=== PATIENT | male | born 1950 | race Caucasian/White ===

== ENCOUNTER 2019-09-02 11:48 | Emergency (ER) | payer MEDICARE, BC ==
[~2019-09-02] VITALS: Ht 190.5 cm; Wt 107.0 kg
[2019-09-02 12:27] LABS: BASOPHILS % (AUTO) 0.7 % (0-1); EOSINOPHILS # (AUTO) 0.2 X10'3 (0-0.9); HEMATOCRIT 45.5 % (42.0-52.0); HEMOGLOBIN 15.5 g/dl (14.0-17.9); LYMPHOCYTES # (AUTO) 1.7 X10'3 (1.1-4.8); MEAN CORPUSCULAR HEMOGLOBIN 32.5 PG (27.0-31.0); MEAN CORPUSCULAR HGB CONC 34.1 g/dL (33.0-36.5); MEAN CORPUSCULAR VOLUME 95.2 FL (78-98); MEAN PLATELET VOLUME 7.6 FL (7.4-10.4); MONOCYTES # (AUTO) 0.8 X10'3 (0-0.9); MONOCYTES % (AUTO) 13.1 % (2-12); NEUTROPHILS # (AUTO) 3.2 X10'3 (1.8-7.7); NEUTROPHILS % (AUTO) 54.2 % (42-75); PLATELET COUNT 262 X10'3 (140-440); RED BLOOD COUNT 4.78 X10'6 (4.70-6.10); RED CELL DISTRIBUTION WIDTH 14.1 % (11.5-14.5); WHITE BLOOD COUNT 5.9 X10'3 (4.5-11.0)
[2019-09-02 12:39] LABS: PARTIAL THROMBOPLASTIN TIME 28 SECONDS (22-32)
[2019-09-02 12:47] LABS: ALANINE AMINOTRANSFERASE 30 U/L (12-78); ALBUMIN 3.9 G/DL (3.4-5.0); ALBUMIN/GLOBULIN RATIO 1.1 (1.1-1.5); ALKALINE PHOSPHATASE 78 IU/L (46-116); ANION GAP 9 (8-16); ASPARTATE AMINO TRANSFERASE 13 U/L (10-37); BILIRUBIN,TOTAL 0.4 MG/DL (0.1-1.0); BLOOD UREA NITROGEN 16 MG/DL (7-18); CALCIUM 8.3 MG/DL (8.5-10.1); CHLORIDE 108 MMOL/L (99-107); GLUCOSE 128 MG/DL (70-104); POTASSIUM 4.4 MMOL/L (3.5-5.1); SODIUM 144 MMOL/L (135-145); TOTAL CARBON DIOXIDE 26.8 MMOL/L (24-32); TOTAL PROTEIN 7.4 G/DL (6.4-8.2); eGFR 74 ML/MIN
[2019-09-02 16:23] VITALS: BP 162/94
== END 2019-09-02 16:25 | disposition home or self-care (01) ==
LOC: ER 11:48
DX: R07.89 Other chest pain (principal); I48.91 Unspecified atrial fibrillation
CPT/HCPCS: 36415; 71045; 80053; 84484; 85025; 85610; 85730; 93005; 99284

== ENCOUNTER 2020-11-22 09:42 | Day surgery (SDC) | payer MEDICARE, BC ==
[2020-11-22] VITALS (10 sets, daily range): BP systolic 104–149; BP diastolic 73–108
[~2020-11-22] VITALS: Ht 190.5 cm; Wt 111.1 kg
[2020-11-22] MEDS ORDERED: fentaNYL/PF 50MCG/1 ML 2ML syringe IV ONE (10:15)
[2020-11-22] MEDS ORDERED: MIDAZolam 1mg/ml 10ml vial IV ONE (10:15)
[2020-11-22] MEDS ORDERED: normal saline 1000ml 1,000 ML IV SCH (10:15)
[2020-11-22] MEDS ORDERED: SUCR1TAB PO (10:44)
[2020-11-22] MEDS ORDERED: PANT40TA54 PO (10:44)
[2020-11-22] MEDS ORDERED: PRAV40TA3 PO (10:44)
[2020-11-22] MEDS ORDERED: LOSA50TA64 PO (10:44)
[2020-11-22] MEDS ORDERED: CARV12.545 PO (10:44)
[2020-11-22 10:45] LABS: BASOPHILS # (AUTO) 0.1 X10'3 (0-0.2); EOSINOPHILS # (AUTO) 0.1 X10'3 (0-0.9); EOSINOPHILS % (AUTO) 2.5 % (0-6); HEMATOCRIT 42.2 % (42.0-52.0); HEMOGLOBIN 14.2 g/dl (14.0-17.9); LYMPHOCYTES # (AUTO) 1.5 X10'3 (1.1-4.8); LYMPHOCYTES % (AUTO) 27.5 % (21-51); MEAN CORPUSCULAR HEMOGLOBIN 32.2 PG (27.0-31.0); MEAN CORPUSCULAR HGB CONC 33.6 g/dL (33.0-36.5); MEAN CORPUSCULAR VOLUME 95.9 FL (78-98); MEAN PLATELET VOLUME 7.5 FL (7.4-10.4); MONOCYTES # (AUTO) 0.8 X10'3 (0-0.9); MONOCYTES % (AUTO) 14.7 % (2-12); NEUTROPHILS % (AUTO) 54.3 % (42-75); PLATELET COUNT 221 X10'3 (140-440); RED CELL DISTRIBUTION WIDTH 13.7 % (11.5-14.5); WHITE BLOOD COUNT 5.5 X10'3 (4.5-11.0)
[2020-11-22] MEDS ORDERED: APPLE CIDER VINEGAR (10:47)
[2020-11-22] MEDS ORDERED: ASCO500C12 PO (10:47)
[2020-11-22] MEDS ORDERED: APIX5TAB3 PO (10:47)
[2020-11-22] MEDS ORDERED: SOTA80TA73 PO (10:48)
[2020-11-22 10:57] LABS: ALBUMIN 3.6 G/DL (3.4-5.0); ANION GAP 8 (8-16); BLOOD UREA NITROGEN 14 MG/DL (7-18); BUN/CREATININE RATIO 16.5 (5.4-32.0); CALCIUM 8.7 MG/DL (8.5-10.1); CHLORIDE 108 MMOL/L (99-107); CREATININE 0.85 MG/DL (0.60-1.10); GLUCOSE 98 MG/DL (70-104); MAGNESIUM 2.1 MG/DL (1.5-2.4); POTASSIUM 4.3 MMOL/L (3.5-5.1); SODIUM 142 MMOL/L (135-145); TOTAL CARBON DIOXIDE 26.3 MMOL/L (24-32); eGFR 89 ML/MIN
== END 2020-11-22 13:40 | disposition home or self-care (01) ==
LOC: SSTAY O 09:42
PROVIDERS: ATTEND Internal Medicine Cardiovascular Disease
DX: I48.4 Atypical atrial flutter (principal); I10 Essential (primary) hypertension; E78.5 Hyperlipidemia, unspecified; G47.30 Sleep apnea, unspecified; Z79.899 Other long term (current) drug therapy
CPT/HCPCS: 36415; 80048; 83735; 85025; 85610; 92960; 93005; 94799

== ENCOUNTER 2021-03-19 07:56 | Day surgery (SDC) | payer MEDICARE, BC ==
[2021-03-19] VITALS (10 sets, daily range): BP systolic 113–154; BP diastolic 74–111
[~2021-03-19] VITALS: Ht 190.5 cm; Wt 109.8 kg
[~2021-03-19 07:56] MED LIST: APIX5TAB3 PO; APPLE CIDER VINEGAR; ASCO500C12 PO; CARV12.545 PO; LOSA50TA64 PO; PANT40TA54 PO; PRAV40TA3 PO; SOTA80TA73 PO; SUCR1TAB PO
[2021-03-19] MEDS ORDERED: PROP325C5 PO (08:51)
[2021-03-19 09:36] LABS: BASOPHILS # (AUTO) 0.1 X10'3 (0-0.2); BASOPHILS % (AUTO) 1.2 % (0-1); EOSINOPHILS # (AUTO) 0.3 X10'3 (0-0.9); EOSINOPHILS % (AUTO) 4.6 % (0-6); HEMATOCRIT 41.9 % (42.0-52.0); LYMPHOCYTES # (AUTO) 1.3 X10'3 (1.1-4.8); LYMPHOCYTES % (AUTO) 20.5 % (21-51); MEAN CORPUSCULAR HEMOGLOBIN 32.2 PG (27.0-31.0); MEAN CORPUSCULAR HGB CONC 33.3 g/dL (33.0-36.5); MEAN CORPUSCULAR VOLUME 96.7 FL (78-98); MEAN PLATELET VOLUME 7.6 FL (7.4-10.4); MONOCYTES # (AUTO) 0.9 X10'3 (0-0.9); MONOCYTES % (AUTO) 14.5 % (2-12); NEUTROPHILS # (AUTO) 3.6 X10'3 (1.8-7.7); NEUTROPHILS % (AUTO) 59.2 % (42-75); PLATELET COUNT 256 X10'3 (140-440); RED BLOOD COUNT 4.34 X10'6 (4.70-6.10); RED CELL DISTRIBUTION WIDTH 13.8 % (11.5-14.5); WHITE BLOOD COUNT 6.1 X10'3 (4.5-11.0)
[2021-03-19 09:55] LABS: ALBUMIN 3.6 G/DL (3.4-5.0); ANION GAP 8 (8-16); BLOOD UREA NITROGEN 17 MG/DL (7-18); BUN/CREATININE RATIO 16.5 (5.4-32.0); CALCIUM 8.1 MG/DL (8.5-10.1); CHLORIDE 110 MMOL/L (99-107); CREATININE 1.03 MG/DL (0.60-1.10); GLUCOSE 95 MG/DL (70-104); MAGNESIUM 2.1 MG/DL (1.5-2.4); SODIUM 142 MMOL/L (135-145); TOTAL CARBON DIOXIDE 23.6 MMOL/L (24-32); eGFR 71 ML/MIN
[2021-03-19] MEDS ORDERED: normal saline 1000ml 1,000 ML IV SCH (10:05)
[2021-03-19] MEDS ORDERED: fentaNYL/PF 50MCG/1 ML 2ML syringe IV ONE (10:05)
[2021-03-19] MEDS ORDERED: morphine 10mg/ml inj. IV ONE (10:05)
[2021-03-19] MEDS ORDERED: MIDAZolam 5mg/ml 2ml vial IV ONE (10:10)
== END 2021-03-19 12:55 | disposition home or self-care (01) ==
LOC: SSTAY O 07:56
PROVIDERS: ATTEND Internal Medicine Cardiovascular Disease
DX: I48.3 Typical atrial flutter (principal); I10 Essential (primary) hypertension; E78.5 Hyperlipidemia, unspecified; G47.30 Sleep apnea, unspecified; I48.0 Paroxysmal atrial fibrillation; Z79.01 Long term (current) use of anticoagulants; Z79.899 Other long term (current) drug therapy
CPT/HCPCS: 36415; 80048; 83735; 85025; 85610; 92960; 93005; 94760; 94799; J2250; J3010; J7030

== ENCOUNTER 2021-04-27 07:50 | Day surgery (SDC) | payer MEDICARE, BC ==
[2021-04-27] VITALS (23 sets, daily range): BP systolic 114–152; BP diastolic 79–105
[~2021-04-27] VITALS: Ht 190.5 cm; Wt 107.3 kg
[~2021-04-27 07:50] MED LIST changes: -CARV12.545 PO; +PROP325C5 PO; -SOTA80TA73 PO; -SUCR1TAB PO
[2021-04-27] MEDS ORDERED: fentaNYL/PF 50MCG/1 ML 2ML syringe IV ONE (08:20)
[2021-04-27] MEDS ORDERED: normal saline 1000ml 1,000 ML IV SCH (08:20)
[2021-04-27] MEDS ORDERED: MIDAZolam 1mg/ml 10ml vial IV ONE (08:20)
[2021-04-27] MEDS ORDERED: NITR0.4T51 SL (08:26)
== END 2021-04-27 13:40 | disposition home or self-care (01) ==
LOC: SSTAY O 07:50
PROVIDERS: ATTEND Internal Medicine Cardiovascular Disease
DX: I48.4 Atypical atrial flutter (principal); I48.0 Paroxysmal atrial fibrillation; I10 Essential (primary) hypertension; E78.5 Hyperlipidemia, unspecified; G47.30 Sleep apnea, unspecified; Z79.899 Other long term (current) drug therapy; Z79.01 Long term (current) use of anticoagulants
CPT/HCPCS: 92960; 93005; 94760; 94799

== ENCOUNTER 2021-08-20 06:07 | Day surgery (SDC) | payer MEDICARE, BC ==
[~2021-08-20] VITALS: Ht 190.5 cm; Wt 110.4 kg
[~2021-08-20 06:07] MED LIST changes: -APPLE CIDER VINEGAR; -ASCO500C12 PO; +NITR0.4T51 SL
[2021-08-20] MEDS ORDERED: normal saline 1000ml 1,000 ML IV SCH (06:35)
[2021-08-20] MEDS ORDERED: MIDAZolam 1mg/ml 10ml vial IV ONE (06:35)
[2021-08-20] MEDS ORDERED: fentaNYL/PF 50MCG/1 ML 2ML syringe IV ONE (06:35)
[2021-08-20] MEDS ORDERED: RYT225T PO (06:40)
--- NOTE | 2021-08-20 08:10 | NUR ---
Procedure cancelled per MD after review of bedside EKG.
== END 2021-08-20 08:05 | disposition home or self-care (01) ==
LOC: SSTAY O 06:07
PROVIDERS: ATTEND Internal Medicine Cardiovascular Disease
DX: I48.92 Unspecified atrial flutter (principal); Z53.8 Procedure and treatment not carried out for other reasons
CPT/HCPCS: 93005

== ENCOUNTER 2021-09-26 07:04 | Day surgery (SDC) | payer MEDICARE, BC ==
[2021-09-21 10:18] LABS: BASOPHILS # (AUTO) 0.1 X10'3 (0-0.2); EOSINOPHILS # (AUTO) 0.2 X10'3 (0-0.9); EOSINOPHILS % (AUTO) 2.6 % (0-6); LYMPHOCYTES # (AUTO) 1.5 X10'3 (1.1-4.8); LYMPHOCYTES % (AUTO) 23.9 % (21-51); MEAN CORPUSCULAR HEMOGLOBIN 32.5 PG (27.0-31.0); MEAN CORPUSCULAR HGB CONC 33.4 g/dL (33.0-36.5); MEAN CORPUSCULAR VOLUME 97.6 FL (78-98); MEAN PLATELET VOLUME 7.6 FL (7.4-10.4); MONOCYTES # (AUTO) 0.9 X10'3 (0-0.9); MONOCYTES % (AUTO) 13.8 % (2-12); NEUTROPHILS # (AUTO) 3.7 X10'3 (1.8-7.7); NEUTROPHILS % (AUTO) 58.7 % (42-75); PRE OP HEMATOCRIT 41.1 % (42.0-52.0); PRE OP HEMOGLOBIN 13.7 g/dL (14.0-17.9); PRE OP PLATELET COUNT 223 X10'3 (140-440); RED BLOOD COUNT 4.21 X10'6 (4.70-6.10); RED CELL DISTRIBUTION WIDTH 14.1 % (11.5-14.5)
[2021-09-21 10:35] LABS: CLARITY,URINE CLEAR (Clear); COLOR,URINE YELLOW (Yellow); GLUCOSE, URINE NEGATIVE (Neg); KETONES,URINE NEGATIVE (Neg); LEUKOCYTE ESTERASE ,URINE NEGATIVE (Neg); NITRITES, URINE NEGATIVE (Neg); OCCULT BLOOD,URINE TRACE-INTACT (Neg); PROTEIN,URINE NEGATIVE (Neg); UROBILINOGEN,URINE 0.2 E.U/dL (0.2-1.0)
[2021-09-21 10:36] LABS: UA COLLECTION TYPE CLN CATCH MIDSTREAM
[2021-09-21 10:41] LABS: BACTERIA,URINE NONE SEEN /HPF (Neg); MUCUS STRANDS NONE SEEN /LPF (Neg); RBC,URINE 0-2 /HPF (0-2); SQUAMOUS EPITHELIAL CELL,UR FEW /LPF (FEW); WBC,URINE NONE SEEN /HPF (0-4)
[2021-09-21 10:42] LABS: FINE GRANULAR CAST 0-3 /LPF (NEGATIVE)
[2021-09-21 10:42] LABS: ALBUMIN 3.7 G/DL (3.4-5.0); ALBUMIN/GLOBULIN RATIO 1.2 (1.1-1.5); ALKALINE PHOSPHATASE 68 IU/L (46-116); BLOOD UREA NITROGEN 17 MG/DL (7-18); BUN/CREATININE RATIO 15.9 (5.4-32.0); CALCIUM 8.4 MG/DL (8.5-10.1); CHLORIDE 106 MMOL/L (99-107); CREATININE 1.07 MG/DL (0.60-1.10); PRE OP ALT 33 U/L (30-65); PRE OP ANION GAP 9 (8-16); PRE OP AST 13 U/L (10-37); PRE OP BILIRUB, TOTAL 0.4 MG/DL (0.0-1.0); PRE OP GLUCOSE 108 MG/DL (70-104); PRE OP POTASSIUM 4.2 MMOL/L (3.4-5.1); PRE OP SODIUM 144 MMOL/L (135-145); TOTAL CARBON DIOXIDE 29.1 MMOL/L (24-32); TOTAL PROTEIN 6.8 G/DL (6.4-8.2); eGFR 68 ML/MIN
[2021-09-26] VITALS (14 sets, daily range): BP systolic 137–167; BP diastolic 86–119
[~2021-09-26] VITALS: Ht 190.5 cm; Wt 108.5 kg
[~2021-09-26 07:04] MED LIST changes: +BUPIVAcaine 0.5% inj/PF 30 ML ONE; -PROP325C5 PO; +RYT225T PO; +cefazolin/dext.iso 2gm/50ml IV ONE; +famotidine 20mg tablet PO ONE; +ringers solution, lacted 1,000 ML IV SCH
[2021-09-26] MEDS ORDERED: ringers solution, lacted 1,000 ML IV SCH (09:50)
[2021-09-26] MEDS ORDERED: meperidine/PF 25mg/ml syringe IV PRN ×3 (09:50)
[2021-09-26] MEDS ORDERED: morphine 2 MG/ML inj. syringe IV PRN (09:50)
[2021-09-26] MEDS ORDERED: morphine 4 MG/ML inj SYRINge IV PRN (09:50)
[2021-09-26] MEDS ORDERED: proCHLORperazine 10 MG/2 ml inj IV PRN (09:50)
[2021-09-26] MEDS ORDERED: ondansetron/PF 4mg/2ml inj IV PRN (09:50)
[2021-09-26] MEDS ORDERED: midazolam 1 mg/ML 2ml injection ONE (12:18)
[2021-09-26] MEDS ORDERED: fentaNYL /PF 50mcg/ml 5ml ampule ONE (12:19)
[2021-09-26] MEDS ORDERED: propofol inj 20 ML IV ONE (12:27)
[2021-09-26] MEDS ORDERED: ondansetron/PF 4mg/2ml inj ONE (12:27)
[2021-09-26] MEDS ORDERED: rocuronium 10mg/ml inj IV ONE (12:27)
[2021-09-26] MEDS ORDERED: LIDOcaine 2% (20mg/ml) 5ml vial ONE (12:27)
[2021-09-26] MEDS ORDERED: acetaminophen 1,000mg/100ml IV 100 ML IV ONE (13:39)
--- NOTE | 2021-09-26 14:02 | NUR ---
Received from OR via gurney, accompanied by Anesthesiologist Dr. Us and report given by Anesthesiolgist. pt with oral airway in place, vital signs stable, blood pressure slightly elevated, bp cuff repositioned, and pressure decreased, orders received for vasotec if pt continues to be hypertensive. coude valle catheter remains in place, bloody urine in bag, per OR nurse pt will go home with valle catheter due to difficult placement.
--- NOTE | 2021-09-26 14:20 | NUR ---
pt is awake and responsive, he was able to remove the oral airway himself. pharmacy called for vasotec, patient denies pain at this time but complains of pressure in abdominal cavity
[2021-09-26] MEDS ORDERED: enalaprilat dihydrate 2.5mg/2ml vial IV PRN (14:30)
--- NOTE | 2021-09-26 16:02 | NUR ---
PATIENT MEETS ALL DISCHARGE CRITERIA, IV CATHETER REMOVED INTACT, DRESSING AND COBAN APPLIED, PTS NAVARRO CATHETER REMIANS IN PLACE, URINE SLOWLY CLEARING UP TO LIGHT PINK. PT GIVEN INSTRUCTIONS ON HOW TO EMPTY AND CARE FOR NAVARRO CATHETER, PT DID NOT WANT LEG BAG. PT CONTINUES TO HAVE MILD PAIN IN THE PENIS AREA, STATES HE FEELS LIKE HE HAS TO URINATE CONSTANTLY. PTS STATES HE IS DUE TO TAKE HIS CARDIAC MEDICINE AT 430 AND WANTED TO GET HOME TO TAKE IT ON TIME. Addendum: 09/26/21 at 1638 by Cony Dave RN Amended: Links added.
--- NOTE | 2021-09-26 16:03 | NUR ---
PT TRANSPORTED TO THE FRONT ENTRY WAY VIA WHEEL CHAIR WHERE HIS WAS WAITING FOR HIM Addendum: 09/26/21 at 1638 by Cony Dave RN Amended: Links added.
== END 2021-09-26 16:02 | disposition home or self-care (01) ==
LOC: PAS 07:04
PROVIDERS: ATTEND Surgery
DX: K40.90 Unilateral inguinal hernia, without obstruction or gangrene, not specified as recurrent (principal); N40.0 Benign prostatic hyperplasia without lower urinary tract symptoms; I48.91 Unspecified atrial fibrillation; I10 Essential (primary) hypertension; I48.0 Paroxysmal atrial fibrillation; K21.9 Gastro-esophageal reflux disease without esophagitis; Z79.01 Long term (current) use of anticoagulants; Z79.899 Other long term (current) drug therapy; Z20.822 Contact with and (suspected) exposure to COVID-19; Z87.891 Personal history of nicotine dependence; Z72.89 Other problems related to lifestyle; Z98.890 Other specified postprocedural states; Z88.8 Allergy status to other drugs, medicaments and biological substances; Z82.49 Family history of ischemic heart disease and other diseases of the circulatory system
CPT/HCPCS: 36415; 49650; 80053; 81001; 82948; 85025; C1781; J0131; J2250; J2270; J2405; J2704; J3010; J3490; J7030; J7120; S0020; U0003; U0005; Z7506; Z7508; Z7512; A4215; A4340; A4618

== ENCOUNTER 2022-10-18 08:32 | Outpatient (CLI) | payer MEDICARE, BC ==
[~2022-10-18 08:32] MED LIST changes: -BUPIVAcaine 0.5% inj/PF 30 ML ONE; -cefazolin/dext.iso 2gm/50ml IV ONE; -famotidine 20mg tablet PO ONE; -ringers solution, lacted 1,000 ML IV SCH
== END 2022-10-18 23:59 | disposition home or self-care (01) ==
LOC: RAD 08:32
PROVIDERS: ATTEND Family Medicine
DX: N20.0 Calculus of kidney (principal); R10.32 Left lower quadrant pain; K65.1 Peritoneal abscess
CPT/HCPCS: 74176

== ENCOUNTER 2023-06-12 08:29 | Outpatient (CLI) | payer MEDICARE, BC | END 2023-06-12 23:59 | disposition home or self-care (01) | LOC: RAD 08:29 | PROVIDERS: ATTEND Family Medicine | DX: N28.1 Cyst of kidney, acquired (principal); R10.9 Unspecified abdominal pain | CPT/HCPCS: 74176 ==

== ENCOUNTER 2023-07-04 16:49 | Emergency (ER) | payer MEDICARE, BC ==
[~2023-07-04] VITALS: Ht 190.5 cm; Wt 113.0 kg
[2023-07-04 19:05] LABS: BASOPHILS % (AUTO) 0.4 % (0-1); EOSINOPHILS % (AUTO) 0.5 % (0-6); HEMATOCRIT 39.7 % (42.0-52.0); HEMOGLOBIN 13.6 g/dl (14.0-17.9); LYMPHOCYTES # (AUTO) 0.3 X10'3 (1.1-4.8); MEAN CORPUSCULAR HEMOGLOBIN 32.7 PG (27.0-31.0); MEAN CORPUSCULAR HGB CONC 34.2 g/dL (33.0-36.5); MEAN CORPUSCULAR VOLUME 95.5 FL (78-98); MEAN PLATELET VOLUME 8.1 FL (7.4-10.4); MONOCYTES # (AUTO) 0.6 X10'3 (0-0.9); MONOCYTES % (AUTO) 7.1 % (2-12); PLATELET COUNT 210 X10'3 (140-440); RED BLOOD COUNT 4.16 X10'6 (4.70-6.10); RED CELL DISTRIBUTION WIDTH 13.8 % (11.5-14.5); WHITE BLOOD COUNT 7.9 X10'3 (4.5-11.0)
[2023-07-04 19:27] LABS: ALANINE AMINOTRANSFERASE 29 U/L (12-78); ALBUMIN 3.9 G/DL (3.4-5.0); ALKALINE PHOSPHATASE 92 IU/L (46-116); ANION GAP 6 (8-16); ASPARTATE AMINO TRANSFERASE 19 U/L (10-37); BILIRUBIN,TOTAL 0.4 MG/DL (0.1-1.0); BLOOD UREA NITROGEN 12 MG/DL (7-18); BUN/CREATININE RATIO 11.8 (10.0-20.0); CALCIUM 8.5 MG/DL (8.5-10.1); CHLORIDE 105 MMOL/L (99-107); CREATININE 1.02 MG/DL (0.60-1.10); GLUCOSE 83 MG/DL (70-104); POTASSIUM 3.7 MMOL/L (3.5-5.1); SODIUM 139 MMOL/L (135-145); TOTAL CARBON DIOXIDE 27.8 MMOL/L (24-32); TOTAL PROTEIN 7.7 G/DL (6.4-8.2); eCRCL 77 ML/MIN; eGFR 72 ML/MIN
[2023-07-04 19:35] LABS: MAGNESIUM 1.9 MG/DL (1.5-2.4); PRO BRAIN NATRIURETIC PEPTIDE 336 PG/ML (0-125)
[2023-07-04 20:29] VITALS: BP 154/80; PULSE 79; RESP 18; TEMP 98; O2SAT 98
== END 2023-07-04 20:32 | disposition home or self-care (01) ==
LOC: ER 16:49
DX: R55 Syncope and collapse (principal); R53.1 Weakness; R42 Dizziness and giddiness
CPT/HCPCS: 36415; 71045; 80053; 83735; 83880; 84484; 85025; 93005; 99285